=== PATIENT | male | born 1965 | race Caucasian/White ===

== ENCOUNTER 2017-12-27 13:48 | Inpatient (IN) ==
[2017-12-27] MEDS ORDERED: SODIUM CHLORIDE 0.9% 100 ML IV ONE (14:09)
[2017-12-27] MEDS ORDERED: DILTIAZEM 100 MG VIAL.ADD IV ONE (14:09)
[2017-12-27] MEDS ORDERED: ENOXAPARIN 100 MG/ML SYRINGE SUBCUT STA (14:23)
[2017-12-27] MEDS ORDERED: DILTIAZEM 50 MG/10 ML VIAL IV STA ×2 (14:25)
[2017-12-27] MEDS ORDERED: SODIUM CHLORIDE 0.9% 500 ML IV STA (14:25)
[2017-12-27 14:28] LABS: Basophils # 0.1 10*3/uL (0.0-0.2); Basophils % 0.5 % (0.0-0.8); Eosinophils # 0.2 10*3/uL (0.0-0.87); Hematocrit 47.6 VOL% (42.0-52.0); Hemoglobin 16.8 GM/DL (14.0-18.0); Immature Granulocytes % 0.3 %; Immature Granulocytes Absolute 0.03 #; Lymphocytes # 2.6 10*3/uL (1.4-4.0); Lymphocytes % 28.6 % (21.2-54.2); Mean Corpuscular HGB Conc 35.3 GM/DL (32-36); Mean Corpuscular Hemoglobin 32 PG (27-34); Mean Corpuscular Volume 91.9 FL (87-102); Mean Platelet Volume 12.5 FL (9.6-12.0); Monocytes # 0.8 10*3/uL (0.11-0.8); Monocytes % 8.8 % (1.7-12.7); Neutrophils # 5.4 10*3/uL (1.4-7.4); Neutrophils % 59.8 % (38.7-73.9); Platelet Count 94 T/CUMM (130-400); Red Blood Count 5.18 MC/CUMM (3.8-5.5); Red Cell Distribution Width 13.6 % (9.3-17.3); White Blood Count 9.1 T/CUMM (4-12)
[2017-12-27] MEDS ORDERED: DILTIAZEM INJ 100 MG in SODIUM CHLORIDE 0.9% 100 ML IV SCH (14:30)
[2017-12-27] MEDS ORDERED: ENOXAPARIN 100 MG/ML SYRINGE SUBCUT ONE (14:51)
[2017-12-27 15:01] LABS: Platelet Estimate Adequate
[2017-12-27 15:04] LABS: Alanine Aminotransferase 126 U/L (16-61); Albumin 3.5 G/DL (3.4-5.0); Alkaline Phosphatase 107 U/L (45-117); Aspartate Amino Transferase 125 U/L (0-37); Blood Urea Nitrogen 7 MG/DL (7-18); Calcium 8.6 MG/DL (8.5-10.1); Glucose 128 MG/DL (74-106); Osmolality,Calculated 272.8 MOS/KG (273-304); Potassium 4.1 MMOL/L (3.5-5.1); Sodium 137 MMOL/L (136-145); Total Protein 8.3 G/DL (6.4-8.3); Troponin I Only < 0.015 NG/ML (0.00-0.045)
[2017-12-27] MEDS ORDERED: ONDANSETRON 4 MG/2 ML VIAL IV PRN (15:31)
[2017-12-27] MEDS ORDERED: ACETAMINOPHEN 325 MG TABLET PO PRN (15:31)
[2017-12-27] MEDS: GABAPENTIN 600 MG TABLET PO SCH (21:38)
[2017-12-27] MEDS: METOPROLOL TARTRATE 25 MG TABLET PO SCH (21:38)
[2017-12-27] MEDS: DOCUSATE SODIUM 100 MG CAPSULE PO SCH (21:38)
[2017-12-27] MEDS: clonazePAM 0.5 MG TABLET PO SCH (21:38)
[2017-12-28 06:48] LABS: Albumin 2.6 G/DL (3.4-5.0); Bilirubin,Direct 0.33 MG/DL (0.0-0.20); Bilirubin,Indirect 0.8 MG/DL (0.0-1.0); Bilirubin,Total 1.1 MG/DL (0.2-1.0); Risk Ratio 3.91; Total Protein 6.2 G/DL (6.4-8.3); VLDL CHOLESTEROL 21.4 MG/DL
[2017-12-28] MEDS ORDERED: NITROGLYCERIN SL 0.4 MG TABLET SL PRN (07:20)
[2017-12-28] MEDS: ENOXAPARIN 100 MG/ML SYRINGE SUBCUT SCH ×2 (09:36→21:28)
[2017-12-28] MEDS: PANTOPRAZOLE 40 MG TABLET PO SCH (09:36)
[2017-12-28] MEDS: clonazePAM 0.5 MG TABLET PO SCH ×2 (09:37→21:28)
[2017-12-28] MEDS: METOPROLOL TARTRATE 25 MG TABLET PO SCH ×2 (09:37→21:28)
[2017-12-28] MEDS: SODIUM CHLORIDE 0.45% 1,000 ML IV SCH ×3 (09:38→22:45)
[2017-12-28] MEDS: DOCUSATE SODIUM 100 MG CAPSULE PO SCH ×3 (09:47→21:32)
[2017-12-28 16:54] LABS: Apearance,Urine Clear (Clear); Urine Color Yellow (Yellow)
[2017-12-28 16:55] LABS: Bilirubin,Urine Negative (Negative); Blood, Urine Negative (Negative); Glucose,Urine (UA) Negative (Negative); Ketones,Urine Negative (Negative); Nitrite,Urine Negative (Negative); Protein,Urine Negative
[2017-12-28] MEDS: GABAPENTIN 600 MG TABLET PO SCH (21:28)
[2017-12-29] MEDS: SODIUM CHLORIDE 0.45% 1,000 ML IV SCH ×2 (01:32→09:36)
[2017-12-29 05:29] LABS: Basophils # 0.1 10*3/uL (0.0-0.2); Basophils % 0.9 % (0.0-0.8); Eosinophils # 0.1 10*3/uL (0.0-0.87); Eosinophils % 2.6 % (0.00-10.9); Hematocrit 41.9 VOL% (42.0-52.0); Hemoglobin 14.5 GM/DL (14.0-18.0); Immature Granulocytes % 0.2 %; Immature Granulocytes Absolute 0.01 #; Lymphocytes # 2.3 10*3/uL (1.4-4.0); Mean Corpuscular HGB Conc 34.6 GM/DL (32-36); Mean Corpuscular Hemoglobin 33 PG (27-34); Mean Corpuscular Volume 93.9 FL (87-102); Mean Platelet Volume 12.6 FL (9.6-12.0); Monocytes # 0.4 10*3/uL (0.11-0.8); Monocytes % 8.3 % (1.7-12.7); Neutrophils # 2.4 10*3/uL (1.4-7.4); Platelet Count 60 T/CUMM (130-400); Red Blood Count 4.46 MC/CUMM (3.8-5.5); Red Cell Distribution Width 13.5 % (9.3-17.3); White Blood Count 5.3 T/CUMM (4-12)
[2017-12-29 05:44] LABS: Calcium 7.9 MG/DL (8.5-10.1); Osmolality,Calculated 283.8 MOS/KG (273-304); Potassium 3.6 MMOL/L (3.5-5.1)
[2017-12-29 05:48] LABS: Albumin 2.7 G/DL (3.4-5.0); Bilirubin,Total 0.8 MG/DL (0.2-1.0); Calcium 7.9 MG/DL (8.5-10.1); Osmolality,Calculated 283.8 MOS/KG (273-304); Potassium 3.6 MMOL/L (3.5-5.1); Total Protein 6.4 G/DL (6.4-8.3)
[2017-12-29 06:00] LABS: Burr Cells Slight; Eosinophils 5 % (0-10); Hypochromasia 1+; Lymphocytes 37 % (20-55); Ovalocytes Slight; Platelet Estimate Decreased; Segmented Neutrophils 49 % (50-85); Total Cells Counted 100
[2017-12-29] MEDS ORDERED: DIAZEPAM 5 MG TABLET PO ONE (09:00)
[2017-12-29] MEDS ORDERED: diphenhydrAMINE CAP 25 MG CAPSULE PO ONE (09:00)
[2017-12-29] MEDS: ENOXAPARIN 100 MG/ML SYRINGE SUBCUT SCH (09:35)
[2017-12-29] MEDS: DOCUSATE SODIUM 100 MG CAPSULE PO SCH (09:41)
[2017-12-29] MEDS: clonazePAM 0.5 MG TABLET PO SCH (09:41)
[2017-12-29] MEDS: METOPROLOL TARTRATE 25 MG TABLET PO SCH (11:36)
[2017-12-29] MEDS: PANTOPRAZOLE 40 MG TABLET PO SCH (11:36)
[2017-12-29] MEDS ORDERED: MIDAZOLAM 2 MG/2 ML VIAL ONE ×4 (12:14→12:56)
[2017-12-29] MEDS ORDERED: HYDROmorphone 2 MG/1 ML VIAL ONE (12:14)
[2017-12-29] MEDS ORDERED: LIDOCAINE 1% 20 ML VIAL ONE (12:17)
[2017-12-29] MEDS ORDERED: diphenhydrAMINE 50 MG/1 ML VIAL ONE (12:43)
[2017-12-29] MEDS ORDERED: fentaNYL 100 MCG/2 ML VIAL ONE (12:56)
[2017-12-29] MEDS ORDERED: HEPARIN/NACL 0.9% 2 UNITS/ML 500 ML IV ONE (13:13)
[2017-12-29 14:39] LABS: Apearance,Urine CLEAR (Clear); Bilirubin,Urine Negative (Negative); Blood, Urine Small mg/dL (Negative); Glucose,Urine (UA) Negative (Negative); Ketones,Urine Negative (Negative); Mucus,Urine Occasional /LPF (Occasional); Nitrite,Urine Negative (Negative); Protein,Urine Negative; RBC,Urine 8 /HPF (0-4); Urine Color Yellow (Yellow); Urine Specific Gravity 1.008 (1.001-1.035); Urine Urobilinogen < 2.0 EU/DL (0.2-1.0); WBC,Urine <1 /HPF (0-6)
[2017-12-29 18:06] VITALS: BP 110/56
[2017-12-30] MEDS ORDERED: ASPIRIN CHEW 81 MG TABLET PO SCH (09:00)
== END 2017-12-29 19:00 | disposition home or self-care (01) | DRG 287 ==
LOC: N.ED 13:48 → N.EDINP 15:31 → N.TELEN 17:36
PROVIDERS: ADMIT Family Medicine; ATTEND Family Medicine